=== PATIENT | female | born 1995 | race Caucasian/White ===

== ENCOUNTER 2016-10-27 21:50 | Emergency (ER) | payer OTHER ==
[2016-10-27 21:59] VITALS: PULSE 72; RESP 18; TEMP 98.2; O2SAT 99
[2016-10-27] MEDS ORDERED: IBUPROFEN 600 MG TAB PO ONE ×2 (22:12→22:14)
--- NOTE | 2016-10-27 22:16 | UCPHY ---
H & P Patient Type: New Chief Complaint Nursing Narrative: r ear pain x 1 week Time Seen by Provider: 10/27/16 22:03 HPI/ROS: Chief complaint: Right ear and neck pain HPI: 21-year-old female whose had 1 week of viral upper respiratory symptoms including congestion, cough, subjective fevers and chills, eye irritation. Patient states the an hour to go she started having pain in her right ear going in to her right side of her neck. Has had some pain with swallowing. Has not taken any Tylenol or ibuprofen today. Does not have a history of strep throat. Has had a mild dry cough. No chest pain shortness of breath. No abdominal pain. No nausea or vomiting. ROS: 10 point Review of Systems is negative except as noted in the HPI. Physical exam: Gen: Awake, Alert, No Distress HEENT: Ears: Bilateral ears have normal appearing tympanic membranes, there is no erythema, there is no bulging, there is no effusion. No mastoid tenderness to percussion. Nose: Clear rhinorrhea Eyes: PERRLA, EOMI, mild bilateral conjunctival injection Mouth: Moist mucosa no pharyngeal exudate, mild erythema, no temporomandibular joint tenderness Neck: Supple, no JVD, mild cervical lymphadenopathy. There is no submandibular swelling or mass. There is no fluctuance. Chest: nontender, lungs clear to auscultation Heart: S1, S2 normal, no murmur Ext: no edema, non-tender Skin: no rash Neuro: CN II-XII intact, Sensation grossly intact, Strength 5/5 in bilateral upper and lower extremities - Personal History LMP (Females 10-55): Now - Medical/Surgical History Other PMH: denies - Family History Significant Family History: No pertinent family hx - Social History Smoking Status: Never smoked Constitutional: Initial Vital Signs Temperature (C) 36.8 C 10/27/16 21:57 Heart Rate 72 10/27/16 21:57 Respiratory Rate 18 10/27/16 21:57 Blood Pressure 165/111 H 10/27/16 21:57 O2 Sat (%) 99 10/27/16 21:57 O2 Delivery Mode Room Air Allergies/Adverse Reactions: No Known Allergies Allergy (Unverified 04/03/11 16:02) Home Medications: Medication Instructions Recorded No Medications [NO HOME 0 ea MIS 04/03/11 MEDICATIONS] Departure - Departure Disposition: Home, Routine, Self-Care Clinical Impression: Viral upper respiratory infection Condition: Good Instructions: Viral Syndrome (ED) Additional Instructions: He may alternate ibuprofen and acetaminophen every 3-4 hours as needed for aches , pains, fevers, and chills. Follow up with primary care physician in 2-3 days if symptoms are not improved Referrals: Annette Ritchie MD [Primary Care Provider] - As per Instructions - PQRS PQRS Measurement: NA
[2016-10-27 22:28] VITALS: BP 141/85
== END 2016-10-27 22:28 | disposition home or self-care (01) ==
LOC: CED 21:50
DX: J06.9 Acute upper respiratory infection, unspecified (principal)
CPT/HCPCS: G0463-PO